=== PATIENT | female | born 1990 | race Caucasian/White ===

== ENCOUNTER 2020-07-30 19:40 | Emergency (ER) | payer MEDICAID ==
[~2020-07-30] VITALS: Ht 165.1 cm; Wt 50.9 kg
[2020-07-30 20:03] VITALS: BP 130/65
== END 2020-07-30 23:37 | disposition home or self-care (01) ==
LOC: ER 19:42
DX: M53.3 Sacrococcygeal disorders, not elsewhere classified (principal); Z91.040 Latex allergy status
CPT/HCPCS: 99282